=== PATIENT | female | born 1980 | race Native Hawaiian/Other Pacific Islander ===

== ENCOUNTER 2017-04-05 18:45 | Emergency (ER) | payer BC ==
[~2017-04-05] VITALS: Ht 175.3 cm; Wt 72.6 kg
[~2017-04-05 18:45] MED LIST: ADIPEX PO; HYDR25TA60 PO
[2017-04-05 19:35] LABS: PLATELET COUNT 221 K/uL (152-353)
[2017-04-05 19:46] LABS: POTASSIUM 2.9 mmol/L (3.6-5.2); SODIUM 137 mmol/L (136-145)
[2017-04-05 22:25] VITALS: BP 103/54; TEMP 98.9
== END 2017-04-05 22:28 | disposition home or self-care (01) ==
LOC: ED 18:45
PROVIDERS: Internal Medicine
DX: N39.0 Urinary tract infection, site not specified (principal); E87.6 Hypokalemia
CPT/HCPCS: 36415; 80048; 80307; 81000; 83605; 85027; 87077; 87086; 87088; 87186; 96361; 96365; 99284; J0696

== ENCOUNTER 2017-04-24 11:44 | Emergency (ER) | payer BC ==
[~2017-04-24] VITALS: Ht 175.3 cm; Wt 68.0 kg
[2017-04-24 14:38] VITALS: BP 133/72; TEMP 98.3
== END 2017-04-24 14:40 | disposition home or self-care (01) ==
LOC: ED 11:44
DX: H60.93 Unspecified otitis externa, bilateral (principal)
CPT/HCPCS: 96372; 99283; J0696; J1885

== ENCOUNTER 2017-08-12 11:42 | Emergency (ER) | payer OTHER ==
[~2017-08-12] VITALS: Ht 172.7 cm; Wt 63.5 kg
[2017-08-12 11:50] VITALS: BP 148/84; TEMP 98.7
== END 2017-08-12 15:33 | disposition home or self-care (01) ==
LOC: ED 11:42
DX: H92.02 Otalgia, left ear (principal)
CPT/HCPCS: 99281

== ENCOUNTER 2019-03-29 17:23 | Emergency (ER) | payer OTHER ==
[~2019-03-29] VITALS: Ht 175.3 cm; Wt 86.2 kg
[2019-03-29 17:58] LABS: PLATELET COUNT 445 K/uL (152-353)
[2019-03-29 18:10] LABS: POTASSIUM 3.6 mmol/L (3.6-5.2)
[2019-03-29 19:45] VITALS: BP 141/76; TEMP 97.5
== END 2019-03-29 19:45 | disposition home or self-care (01) ==
LOC: ED 17:23
PROVIDERS: Family Medicine
DX: K29.60 Other gastritis without bleeding (principal); R11.0 Nausea
CPT/HCPCS: 80053; 81000; 85027; 96374; 96375; 99284; J1885; J2405; J3490

== ENCOUNTER 2019-05-02 11:12 | Outpatient (CLI) | payer OTHER | END 2019-05-02 19:34 | disposition home or self-care (01) | LOC: RAD 11:12 | DX: M25.511 Pain in right shoulder (principal); S23.9XXA Sprain of unspecified parts of thorax, initial encounter ==

== ENCOUNTER 2020-06-06 09:45 | Outpatient (CLI) | payer OTHER | END 2020-06-06 21:07 | disposition home or self-care (01) | LOC: RAD 09:45 | PROVIDERS: ATTEND Nurse Practitioner Family | DX: M25.571 Pain in right ankle and joints of right foot (principal) ==

== ENCOUNTER 2020-06-14 09:59 | Outpatient (CLI) | payer OTHER | END 2020-06-14 21:44 | disposition home or self-care (01) | LOC: RAD 09:59 | PROVIDERS: ATTEND Registered Nurse | DX: M54.16 Radiculopathy, lumbar region (principal) ==

== ENCOUNTER 2020-10-13 17:43 | Emergency (ER) | payer OTHER ==
[~2020-10-13] VITALS: Ht 175.3 cm; Wt 102.1 kg
[2020-10-13 19:12] LABS: PLATELET COUNT 281 K/uL (152-353)
[2020-10-13 21:20] VITALS: BP 140/82; TEMP 98.9
== END 2020-10-13 21:20 | disposition home or self-care (01) ==
LOC: ED 17:43
PROVIDERS: Family Medicine
DX: U07.1 COVID-19 (principal); J32.8 Other chronic sinusitis; J02.9 Acute pharyngitis, unspecified; F17.210 Nicotine dependence, cigarettes, uncomplicated; M25.571 Pain in right ankle and joints of right foot; X50.1XXA Overexertion from prolonged static or awkward postures, initial encounter; Y92.89 Other specified places as the place of occurrence of the external cause
CPT/HCPCS: 36415; 80053; 82550; 85027; 87502; 87635; 87651; 93005; 96372; 99283; J1885; U0003

== ENCOUNTER 2021-06-17 04:57 | Emergency (ER) | payer OTHER ==
[~2021-06-17] VITALS: Ht 175.3 cm; Wt 99.8 kg
[2021-06-17 05:24] LABS: PLATELET COUNT 449 K/uL (152-353)
[2021-06-17 05:27] LABS: POTASSIUM 2.9 mmol/L (3.6-5.2)
[2021-06-17 11:35] VITALS: BP 129/75; TEMP 98.4
== END 2021-06-17 11:35 | disposition short-term general hospital (02) ==
LOC: ED 04:57
PROVIDERS: Emergency Medicine
DX: R10.84 Generalized abdominal pain (principal); Z20.822 Contact with and (suspected) exposure to COVID-19
CPT/HCPCS: 80053; 80307; 81000; 81025; 83690; 83735; 85008; 85027; 87040; 87635; 96360; 96365; 96375; 99284; J0360; J1170; J2270; J2405; J2543; Q9963; U0003

== ENCOUNTER 2021-08-09 11:10 | Outpatient (CLI) | payer OTHER | END 2021-08-09 20:00 | disposition home or self-care (01) | LOC: RAD 11:10 | PROVIDERS: ATTEND Registered Nurse | DX: M79.601 Pain in right arm (principal) ==

== ENCOUNTER 2021-12-05 15:48 | Outpatient (CLI) | payer OTHER | END 2021-12-05 19:35 | disposition home or self-care (01) | LOC: RAD 15:48 | PROVIDERS: ATTEND Registered Nurse | DX: M54.2 Cervicalgia (principal); M54.59 Other low back pain ==

== ENCOUNTER 2022-05-06 14:25 | Outpatient (CLI) | payer OTHER | END 2022-05-06 19:23 | disposition home or self-care (01) | LOC: RAD 14:25 | PROVIDERS: ATTEND Nurse Practitioner Family | DX: M79.642 Pain in left hand (principal) ==